=== PATIENT | female | born 1995 | race African-American/Black ===

== ENCOUNTER 2024-11-21 13:29 | Emergency (ER) | payer OTHER, SELFPAY ==
[2024-11-21 13:35] VITALS: BP 143/91
[2024-11-21 13:57] LABS: Hematocrit 38.6 % (37.0-47.0); Hemoglobin 12.8 g/dL (12.0-16.0); Mean Corp Hgb Conc. 33.2 g/dL (33.0-37.0); Mean Corpuscular Hgb 26.9 pg (27.0-31.0); Mean Corpuscular Volume 81.3 fL (81.0-99.0); Mean Platelet Volume 10.3 fL (7.4-10.4); Platelet Count 262 10^3/uL (130-400); Red Blood Cell Count 4.75 10^6/uL (4.20-5.40); Red Cell Dist. Width 12.7 % (11.5-14.5); White Blood Cell Count 5.7 10^3/uL (4.8-10.8)
[2024-11-21 14:11] LABS: ALT (SGPT) 11 U/L (0-35); AST (SGOT) 15 U/L (14-36); Albumin 4.4 g/dl (3.5-5.0); Alkaline Phosphatase 41 U/L (38-126); Blood Urea Nitrogen 12 mg/dl (7-17); Calcium 9.2 mg/dl (8.4-10.2); Carbon Dioxide 25 mmol/L (22-30); Chloride 101 mmol/L (98-107); Glucose 154 mg/dl (70-99); Potassium 4.1 mmol/L (3.5-5.1); Sodium 134 mmol/L (135-145); Total Bilirubin 0.6 mg/dl (0.2-1.3); Total Protein 7.5 g/dl (6.3-8.2); eGFR > 60.00
[2024-11-21 14:13] LABS: HCG, Serum Qualitative Screen Negative
[2024-11-21 14:16] LABS: COVID-19 Antigen Negative (Negative)
--- NOTE | 2024-11-21 15:17 | ED.GENMED ---
History of Present Illness
General
Chief Complaint: Cold/Flu/URI Symptoms
Source: patient
Time Seen by Provider: 11/21/24 15:11
History of Present Illness
History of Present Illness:
29-year-old female presents the emergency room complaining of several weeks worth of chills, headache and facial pain, generalized malaise. Patient recently moved to the area from [place]. She has not measured her temperature but has at
times had a subjective fever. Pain in the head is worse with bending over. No improvement with [id number] decongestants. No shortness of breath.
Phy Exam
Physical Exam
Physical Exam:
General: Awake, Alert, Oriented X3. No acute distress.
Vitals: unremarkable
Head: Atraumatic
Eyes: Pupils equal, EOMI
Face: Tenderness to percussion over the maxillary and frontal sinuses
Throat: Airway intact, no exudates
Neck: Trachea midline
Lungs: Clear and equal b/l
Heart: Regular rate, no murmurs
Abd: Soft, Nontender, No pulsatile mass
Neuro: Nonfocal
Skin: Warm, dry, no rash
Extremities: pulses equal b/l, no edema
Course
Orders/Labs/Results
Orders:
Orders
11/21/24 13:39
Test Result ONCE
11/21/24 13:43
COVID-19 Antigen Urgent
Source: Nasal Swab
Complete Blood Count/No Diff Urgent
Comprehensive Metabolic Panel Urgent
HCG, Serum Qualitative Screen Urgent
Influenza A+B Rapid Molecular Urgent
MARYJANE Source: Nasal Swab
Specimen Description:
11/21/24 15:17
Amoxicillin 875 mg/Clav 125 mg [Augmentin 875 mg/125 mg] 1 tablet PO NOW STA
Abnormal Lab Results
11/21/24
13:43
MCH 26.9 L pg
(27.0-31.0)
Sodium 134 L mmol/L
(135-145)
Glucose 154 H mg/dl
(70-99)
11/21/24 13:43
11/21/24 13:43
Vital Signs
Initial and Last Documented VS:
Initial Vital Signs
Temp Pulse Resp BP Pulse Ox
100.2 F 102 18 143/91 99
11/21/24 13:35 11/21/24 13:35 11/21/24 13:35 11/21/24 13:35 11/21/24 13:35
Last Documented Vital Signs
Temp Pulse Resp BP Pulse Ox
100.2 F 83 18 145/95 100
11/21/24 13:35 11/21/24 16:02 11/21/24 16:02 11/21/24 16:02 11/21/24 16:02
MDM/Problems Addressed
Differential Diagnosis Includes:
Viral illness, environmental allergen, sinusitis
MDM/Problems Addressed:
Given the patient's symptoms have persisted for over 2 weeks cover for the potential bacterial sinusitis.
*Pulse Oximetry
Patient hypoxic: no
*Critical Care Note
Total Time (30-74mins, 75-104mins- exclusive of procedures): Not Applicable
ED Attending Note
-
Portions of this chart may have been created with voice recognition software.� Occasional wrong word or��sound alike� substitutions may have occurred due to the inherent limitations of voice recognition software.
Discharge Plan
Departure
Patient Disposition: Home (Routine Discharge)
Date of Disposition: 11/21/24
Time of Disposition: 15:54
Patient with high blood pressure during this ER visit?: Yes
Condition: Good
Discharge Problem:
Acute sinusitis
Instructions: Sinusitis in adults - ED discharge instructions, BLOOD PRESSURE
Prescriptions:
New
amoxicillin-pot clavulanate 875-125 mg tablet
1 tab PO BID Qty: 20 0RF
No Action
sulfamethoxazole-trimethoprim [Bactrim DS] 800-160 mg tablet
1 tab PO BID Qty: 14 0RF
cephalexin 250 mg capsule
250 mg PO Q6H 7 Days Qty: 28 0RF
Referrals:
[facility] [Provider Group]
[facility] [Outside]
Activity Restrictions/Additional Instructions:
Your symptoms may be due to sinusitis. I prescribed 10 days worth of antibiotics. If you do not have a family doctor in the area I have provided you contact information for our family practice residency clinic.
Interventions
Interventions:
*Risk Screen - Suicide Last Done: 11/21/24 13:35
*General Assessment Last Done: 11/21/24 13:35
*Neglect/Abuse Screening Last Done: 11/21/24 13:35
ED- Fall Risk Assessment Last Done: 11/21/24 16:03
*ED COVID-19 Vaccine History Last Done: 11/21/24 16:03
*Nursing Disposition Last Done: 11/21/24 16:03
ED- Pulmonary Assessment Last Done: 11/21/24 15:15
Discharge Date and Time
Discharge Date/Time: 11/21/24 16:03
Print Language: TAMAZIGHT
[2024-11-21] MEDS: AUGMENTIN 875 MG/125 MG 1 TABLET PO (15:21)
[2024-11-21 16:02] VITALS: BP 145/95
== END 2024-11-21 16:03 | disposition home or self-care (01) ==
LOC: EMR 13:29
PROVIDERS: Emergency Medicine; EMERGENCY PHYSICIAN Emergency Medicine
DX: J01.90 Acute sinusitis, unspecified (principal)
CPT/HCPCS: 99283; 80053; 84703; 85027; 87502; 87811

== ENCOUNTER 2025-10-25 22:57 | Emergency (ER) | payer OTHER, SELFPAY ==
[2025-10-25 23:04] VITALS: BP 141/101
[2025-10-25 23:31] LABS: Hematocrit 36.7 % (37.0-47.0); Hemoglobin 12.1 g/dL (12.0-16.0); Mean Corp Hgb Conc. 33.0 g/dL (33.0-37.0); Mean Corpuscular Volume 82.1 fL (81.0-99.0); Platelet Count 281 10^3/uL (130-400); Red Cell Dist. Width 12.8 % (11.5-14.5)
[2025-10-25 23:38] LABS: HCG, Serum Qualitative Screen Negative
[2025-10-25 23:38] LABS: COVID-19 Antigen Negative (Negative)
[2025-10-25 23:48] LABS: Blood Urea Nitrogen 15 mg/dl (7-17); Calcium 9.8 mg/dl (8.4-10.2); Carbon Dioxide 25 mmol/L (22-30); Chloride 104 mmol/L (98-107); Glucose 109 mg/dl (70-99); Sodium 135 mmol/L (135-145); eGFR > 60.00
[2025-10-26 00:03] LABS: Troponin I 0.013 ng/ml
[2025-10-26 00:11] VITALS: BMI 32.0
--- NOTE | 2025-10-26 02:28 | ED.PDOC.TRB ---
ED Provider Triage
-
I was called into see this patient who wanted to leave the emergency department without treatment. She is a 30-year-old female with past medical history of type pretension, PCOS, antiphospholipid antibody syndrome who has been experiencing
palpitations intermittently. Minimal symptoms at this point. I advised patient that I would be able to evaluate her in 15 minutes after I admit and discharge a different patient who was waiting for longer time. I encouraged patient to wait for
formal assessment. Patient reports that she does not want to wait any longer and wants to leave. I encouraged her to return if she changes her mind so we can assess her. Patient is very well-appearing in no acute respiratory distress, vital signs
stable.
== END 2025-10-26 03:37 | disposition left against medical advice (07) ==
LOC: EMR 22:57
PROVIDERS: Emergency Medicine; EMERGENCY PHYSICIAN Emergency Medicine
DX: Z53.29 Procedure and treatment not carried out because of patient's decision for other reasons (principal)
CPT/HCPCS: 80048; 84484; 84703; 85027; 87502; 87811; 93005